=== PATIENT | female | born 1955 | race Caucasian/White ===

== ENCOUNTER 2019-01-05 12:53 | Outpatient (REF) | payer MEDICAID, SELFPAY ==
--- NOTE | 2019-01-05 | PAPFT_PTH ---
PATIENT: Anita Liu LOC: [facility] U#:[id number] AGE/SX: 63/F ROOM: RE01/05/[address]: Gabriela Butcher : 1955 BED: DIS: 01/05/2019 SPEC #: [id number] RECD: 01/08/19 11:32 STATUS: JACKIE REQ #: [id number] KENISHA: 01/05/19 00:[address]: Gabriela Butcher DEPT: [facility] Cytology RECD BY: Elizabeth Li Tissues: 1 - CX/ENDOCX FOR PAP SMEARS Procedures: PAP THIN PREP/[facility] Screening HPV DNA PROBE Comments: [id number]
[2019-01-05 20:59] LABS: HGB 13.1 g/dL (12.0-15.5); Mean Corpuscular Hemoglobin 30.2 pg (27.0-33.0); Mean Corpuscular Volume 94.5 fL (80-95); Mean Platelet Volume 10.7 fL (8.0-11.0); Platelet Count 201 x1000/uL (130-400); RBC 4.34 m/cumm (4.00-5.20); RBC Distribution Width 12.5 % (11.7-14.6); White Blood Cell Count 4.28 k/cumm (4.4-10.8)
[2019-01-05 21:28] LABS: Anion Gap 9.4 mmol/L (3-11); BUN 6 mg/dL (7-18); CO2 28.6 mmol/L (21.0-32.0); CREATININE 0.73 mg/dL (0.55-1.02); Calcium 8.7 mg/dL (8.5-10.1); Calculated LDL 138 mg/dL; Chloride 104 mmol/L (98-107); Cholesterol 213 mg/dL (50-200); Glucose 83 mg/dL (70-100); HDL Cholesterol 62 mg/dL (40-60); Potassium 4.1 mmol/L (3.5-5.1); Sodium 142 mmol/L (136-145); Triglyceride 65 mg/dL (30-150)
== END 2019-01-05 13:13 ==
LOC: NCHCN 12:53
PROVIDERS: PCP Family Medicine; Visit Provider Family Medicine
DX: Z00.00 Encounter for general adult medical examination without abnormal findings (principal); Z13.220 Encounter for screening for lipoid disorders; Z13.228 Encounter for screening for other metabolic disorders; Z12.4 Encounter for screening for malignant neoplasm of cervix; Z11.51 Encounter for screening for human papillomavirus (HPV)
CPT/HCPCS: 80048; 80061; 83721; 85027; 88142; 87624

== ENCOUNTER 2019-01-05 16:12 | Outpatient (REF) | payer MEDICAID, SELFPAY | END 2019-01-05 16:32 | LOC: NCHCN 16:12 | PROVIDERS: PCP Family Medicine; Visit Provider Family Medicine | DX: R69 Illness, unspecified (principal) ==

== ENCOUNTER 2020-07-23 18:26 | Outpatient (REF) | payer MEDICAID, SELFPAY | END 2020-07-23 18:27 | disposition home or self-care (01) | LOC: LBN 18:26 | PROVIDERS: PCP Family Medicine; Visit Provider Family Medicine | DX: L89.324 Pressure ulcer of left buttock, stage 4 (principal) | CPT/HCPCS: 87077; 87070; 87186; 87205 ==

== ENCOUNTER 2020-08-15 15:38 | Outpatient (REF) | payer MEDICAID, SELFPAY | END 2020-08-15 15:39 | disposition home or self-care (01) | LOC: NCHCN 15:38 | PROVIDERS: PCP Family Medicine; Visit Provider Family Medicine | DX: R33.9 Retention of urine, unspecified (principal) | CPT/HCPCS: U0003; 87086 ==

== ENCOUNTER 2020-10-01 22:04 | Outpatient (REF) | payer MEDICAID, SELFPAY ==
[2020-10-01 23:02] LABS: Bilirubin Negative (Negative); Blood Trace-intact (Negative); Clarity Sl Cloudy (Clear); Glucose Negative (Negative); Ketones Negative (Negative); Leukocyte Esterase Small (Negative); Nitrite Negative (Negative); Urobilinogen 0.2 EU/dL (Up TO 0.2)
[2020-10-01 23:27] LABS: Bacteria Moderate HPF (Negative); C & S Indicated? Yes; Casts Negative LPF (Negative); Crystals Negative HPF (Negative); Epithelial Cells Rare HPF (Negative); Mucus Negative (Negative); RBC 0-2 HPF (0-2)
== END 2020-10-01 22:05 | disposition home or self-care (01) ==
LOC: LBN 22:04
PROVIDERS: PCP Family Medicine; Visit Provider Urology
DX: R33.9 Retention of urine, unspecified (principal)
CPT/HCPCS: 87077; 81003; 81015; 87086; 87186

== ENCOUNTER 2021-01-09 21:07 | Outpatient (REF) | payer MEDICAID, SELFPAY ==
[2021-01-09 21:25] LABS: Bilirubin Negative (Negative); Blood Large (Negative); Clarity Sl Cloudy (Clear); Glucose Negative (Negative); Ketones Negative (Negative); Leukocyte Esterase Moderate (Negative); Nitrite Negative (Negative); Urobilinogen 0.2 EU/dL (Up TO 0.2)
[2021-01-09 21:33] LABS: WBC 20-50 HPF (0-5)
[2021-01-09 21:34] LABS: Bacteria Moderate HPF (Negative); C & S Indicated? C&S Done As Ordered; Casts Negative LPF (Negative); Crystals Negative HPF (Negative); Epithelial Cells Rare HPF (Negative); Mucus Negative (Negative); Other Cells Few Transitional (Negative); RBC 20-50 HPF (0-2)
== END 2021-01-09 21:08 | disposition home or self-care (01) ==
LOC: LBN 21:07
PROVIDERS: PCP Family Medicine; Visit Provider Family Medicine
DX: C53.9 Malignant neoplasm of cervix uteri, unspecified (principal); N31.9 Neuromuscular dysfunction of bladder, unspecified; R33.9 Retention of urine, unspecified
CPT/HCPCS: 87077; 81003; 81015; 87086; 87186

== ENCOUNTER 2021-02-13 20:18 | Outpatient (REF) | payer MEDICAID, SELFPAY ==
[2021-02-13 20:56] LABS: Bilirubin Negative (Negative); Blood Trace-intact (Negative); Clarity Sl Cloudy (Clear); Glucose Negative (Negative); Ketones Negative (Negative); Leukocyte Esterase Large (Negative); Nitrite Negative (Negative); Urobilinogen 0.2 EU/dL (Up TO 0.2)
[2021-02-13 21:10] LABS: Bacteria Moderate HPF (Negative); C & S Indicated? Yes; Casts Negative LPF (Negative); Crystals Negative HPF (Negative); Epithelial Cells Few HPF (Negative); Mucus Negative (Negative); RBC 0-2 HPF (0-2); WBC >50 HPF (0-5)
== END 2021-02-13 20:19 | disposition home or self-care (01) ==
LOC: LBN 20:18
PROVIDERS: PCP Family Medicine; Visit Provider Family Medicine
DX: C53.9 Malignant neoplasm of cervix uteri, unspecified (principal); Z46.6 Encounter for fitting and adjustment of urinary device; R33.9 Retention of urine, unspecified
CPT/HCPCS: 87077; 81003; 81015; 87086; 87186